=== PATIENT | female | born 1980 | race Two or more races ===

== ENCOUNTER 2019-09-02 08:47 | Emergency (ER) | payer MEDICAID, OTHER ==
[~2019-09-02] VITALS: Ht 167.6 cm; Wt 94.3 kg
[2019-09-02 09:00] VITALS: BP 129/84
[2019-09-02] MEDS ORDERED: ACETAMINOPHEN 325 MG TAB PO ONE (09:00)
== END 2019-09-02 10:44 | disposition home or self-care (01) ==
LOC: ER 08:47
DX: U07.1 COVID-19 (principal); J18.9 Pneumonia, unspecified organism
CPT/HCPCS: 71045; 87070; 87635; 87804; 87880

== ENCOUNTER 2021-01-27 11:38 | Emergency (ER) | payer MEDICAID ==
[~2021-01-27] VITALS: Ht 165.1 cm; Wt 88.5 kg
[2021-01-27 11:57] VITALS: BP 128/86
[2021-01-27 12:53] LABS: Urine Bacteria MOD /hpf (None Seen); Urine Blood Negative /uL (Negative); Urine Specific Gravity 1.034 (1.001-1.035); Urine WBC 52 /hpf (0 - 5)
== END 2021-01-27 14:31 | disposition home or self-care (01) ==
LOC: ER 11:38
DX: N39.0 Urinary tract infection, site not specified (principal); K59.00 Constipation, unspecified; M48.061 Spinal stenosis, lumbar region without neurogenic claudication; M47.816 Spondylosis without myelopathy or radiculopathy, lumbar region; E11.9 Type 2 diabetes mellitus without complications; Z98.890 Other specified postprocedural states
CPT/HCPCS: 74176; 81001; 81002; 81025